=== PATIENT | female | born 1960 | race Caucasian/White ===

== ENCOUNTER 2018-07-08 15:07 | Day surgery (SDC) | payer BC ==
[2018-07-08] VITALS (7 sets, daily range): BP systolic 106–127; BP diastolic 61–73
[~2018-07-08] VITALS: Ht 157.5 cm; Wt 75.7 kg
[2018-07-08] MEDS ORDERED: LORazepam 0.5 MG tablet PO ONE (15:25)
[2018-07-08] MEDS ORDERED: diphenhydrAMINE 25mg capsule PO ONE (15:25)
[2018-07-08] MEDS ORDERED: ASPI-611 PO (15:43)
[2018-07-08] MEDS ORDERED: DIPH25TA62 PO (15:43)
[2018-07-08] MEDS ORDERED: SOTA80TA73 PO (15:43)
[2018-07-08] MEDS ORDERED: normal saline 1000ml 1,000 ML IV SCH (16:15)
[2018-07-08] MEDS ORDERED: pneumococcal 23-VAL P-sac vacc 25 mcg/0.5ml vial IMVAC ONE (17:40)
[2018-07-08] MEDS ORDERED: iohexol 350MG/ML 100ml bottle IV ONE (19:03)
[2018-07-08] MEDS ORDERED: fentaNYL/PF 50MCG/1 ML 2ML syringe ONE (19:03)
[2018-07-08] MEDS ORDERED: midazolam 2 mg/2 ml injection ONE ×2 (19:03→20:26)
[2018-07-08] MEDS ORDERED: LIDOcaine 1% (10mg/ml)w/preservative injection 20ml MDV ONE (19:03)
[2018-07-08] MEDS ORDERED: heparin 1,000unit/ml 10ml vial 10 ML ONE (19:03)
[2018-07-08] MEDS ORDERED: nitroGLYCERIN-Tridil 50MG/D5W 250 ML IV ONE (19:03)
[2018-07-08] MEDS ORDERED: verapamil 2.5 mg/ml inj IV ONE (19:03)
[2018-07-08] MEDS ORDERED: ondansetron/PF 4mg/2ml inj IV PRN (20:55)
[2018-07-08] MEDS ORDERED: OXAZEpam 15mg capsule PO PRN (20:55)
[2018-07-08] MEDS ORDERED: proCHLORperazine 10 MG/2 ml inj IV PRN (20:55)
--- NOTE | 2018-07-08 22:20 | NUR ---
Pt discharged, radial site inspected and no bleeding present. Pressure relieved slowly by 3 ml over 1 hr Q15. Patient was educated on site management and a bandaid was applied.
== END 2018-07-08 22:20 | disposition home or self-care (01) ==
LOC: SSTAY O 15:07 → MED 3N 21:03 → SSTAY O 22:20
PROVIDERS: ATTEND Internal Medicine Interventional Cardiology
DX: I25.10 Atherosclerotic heart disease of native coronary artery without angina pectoris (principal); I10 Essential (primary) hypertension; I48.0 Paroxysmal atrial fibrillation; F17.210 Nicotine dependence, cigarettes, uncomplicated; Z72.89 Other problems related to lifestyle; Z23 Encounter for immunization; Z85.44 Personal history of malignant neoplasm of other female genital organs; Z79.82 Long term (current) use of aspirin; Z98.890 Other specified postprocedural states; Z79.899 Other long term (current) drug therapy; Z82.49 Family history of ischemic heart disease and other diseases of the circulatory system
CPT/HCPCS: 90732; 93005; 93458; 99152; 99153; J1644; J2001; J2250; J3010; J7030; Q0163; Q9967; A4620; C1769; G0378; J3490

== ENCOUNTER 2018-07-08 22:34 | Emergency (ER) | payer BC ==
[~2018-07-08] VITALS: Ht 157.5 cm; Wt 74.0 kg
[~2018-07-08 22:34] MED LIST: ASPI-611 PO; DIPH25TA62 PO; SOTA80TA73 PO
--- NOTE | 2018-07-08 22:44 | NUR ---
Patient discharged at 22:10 tonight from heart catheterization with dr De Jesus. patient felt something warm and noted that she was bleeding from her right wrist: catheterization site. bandaid was still in place. site marked for current bruising with time and date delineated
--- NOTE | 2018-07-08 22:50 | NUR ---
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
[2018-07-08 23:13] VITALS: BP 145/73
== END 2018-07-08 23:19 | disposition home or self-care (01) ==
LOC: ER 22:34
DX: I97.610 Postprocedural hemorrhage of a circulatory system organ or structure following a cardiac catheterization (principal); Z79.82 Long term (current) use of aspirin
CPT/HCPCS: 99282; 99283

== ENCOUNTER 2020-08-12 11:38 | Inpatient (IN) | payer BC ==
[~2020-08-12] VITALS: Ht 157.5 cm; Wt 79.5 kg
[2020-08-12 12:44] LABS: BASOPHILS # (AUTO) 0.1 X10'3 (0-0.2); EOSINOPHILS # (AUTO) 0.1 X10'3 (0-0.9); EOSINOPHILS % (AUTO) 1.4 % (0-6); HEMATOCRIT 45.6 % (35.0-45.0); HEMOGLOBIN 15.5 g/dl (12.0-16.0); LYMPHOCYTES # (AUTO) 1.8 X10'3 (1.1-4.8); LYMPHOCYTES % (AUTO) 21.9 % (21-51); MEAN CORPUSCULAR HEMOGLOBIN 36.7 PG (27.0-31.0); MEAN CORPUSCULAR HGB CONC 33.9 g/dL (33.0-36.5); MEAN CORPUSCULAR VOLUME 108.3 FL (78-98); MEAN PLATELET VOLUME 8.5 FL (7.4-10.4); MONOCYTES # (AUTO) 0.7 X10'3 (0-0.9); MONOCYTES % (AUTO) 8.4 % (2-12); NEUTROPHILS # (AUTO) 5.5 X10'3 (1.8-7.7); NEUTROPHILS % (AUTO) 67.3 % (42-75); PLATELET COUNT 176 X10'3 (140-440); RED BLOOD COUNT 4.21 X10'6 (4.20-5.60); RED CELL DISTRIBUTION WIDTH 15.8 % (11.5-14.5); WHITE BLOOD COUNT 8.2 X10'3 (4.5-11.0)
[2020-08-12 13:01] LABS: ALANINE AMINOTRANSFERASE 45 U/L (12-78); ALBUMIN 3.1 G/DL (3.4-5.0); ALBUMIN/GLOBULIN RATIO 0.8 (1.1-1.5); ALKALINE PHOSPHATASE 71 IU/L (46-116); ANION GAP 8 (8-16); ASPARTATE AMINO TRANSFERASE 46 U/L (10-37); BILIRUBIN,TOTAL 0.8 MG/DL (0.1-1.0); BLOOD UREA NITROGEN 16 MG/DL (7-18); CALCIUM 8.8 MG/DL (8.5-10.1); CHLORIDE 105 MMOL/L (99-107); CREATININE 0.64 MG/DL (0.40-0.90); GLUCOSE 116 MG/DL (70-104); POTASSIUM 4.1 MMOL/L (3.5-5.1); SODIUM 141 MMOL/L (135-145); TOTAL PROTEIN 7.1 G/DL (6.4-8.2); eGFR > 90 ML/MIN
[2020-08-12] MEDS ORDERED: pantoprazole 40 MG vial IV ONE (15:10)
[2020-08-12] MEDS ORDERED: magnesium hydroxide 30ml (MOM) UD suspension PO PRN (15:15)
[2020-08-12] MEDS ORDERED: mag hydrox/Alum hydrox/simeth 30ml oral suspension PO PRN (15:15)
[2020-08-12] MEDS ORDERED: potassium Cl 20 mEq SR tablet PO PRN ×2 (15:15)
[2020-08-12] MEDS ORDERED: acetaminophen 325mg tablet PO PRN (15:15)
[2020-08-12] MEDS ORDERED: ondansetron/PF 4mg/2ml inj IV PRN (15:15)
[2020-08-12] MEDS ORDERED: magnesium 4gm in 100ml NS 100 ML IV PRN (15:15)
[2020-08-12] MEDS ORDERED: potassium Cl 40MEQ/1/2NS 520ml 520 ML IV PRN ×2 (15:15)
[2020-08-12] MEDS ORDERED: magnesium Cl slow-release 64mg tablet PO PRN (15:15)
[2020-08-12] MEDS ORDERED: magnesium 2GM in 50ml NS 50 ML IV PRN (15:15)
[2020-08-12] MEDS: pantoprazole 40MG/NS 100ML BAG 100 ML IV SCH ×2 (15:23→21:15)
[2020-08-12] MEDS: normal saline 1000ml 1,000 ML IV SCH (15:46)
--- NOTE | 2020-08-12 15:46 | NUR ---
PHARMACIST AT BEDSIDE COMPLETING MED REC
[2020-08-12] MEDS ORDERED: DABI150C PO (15:47)
[2020-08-12] MEDS ORDERED: ATOR40TA72 PO (15:47)
[2020-08-12] MEDS ORDERED: pantoprazole 40MG/NS 100ML BAG 100 ML IV SCH (16:00)
--- NOTE | 2020-08-12 17:00 | NUR ---
HOSPITALIST YAMILA AT BEDSIDE
[2020-08-12] MEDS ORDERED: LORazepam 1 MG tablet PO PRN (17:10)
[2020-08-12] MEDS ORDERED: LORazepam 2 mg/ml vial IV PRN (17:10)
--- NOTE | 2020-08-12 17:25 | NUR ---
PT GIVEN FOOD SHE WILL BE NPO AT MIDNIGHT FOR ENDOSCOPY IN THE AM. WILL CONTINUE TO MONITOR
[2020-08-12 18:56] LABS: HEMATOCRIT 44.2 % (35.0-45.0); HEMOGLOBIN 14.7 g/dl (12.0-16.0); MEAN CORPUSCULAR HEMOGLOBIN 36.3 PG (27.0-31.0); MEAN CORPUSCULAR HGB CONC 33.3 g/dL (33.0-36.5); MEAN CORPUSCULAR VOLUME 108.8 FL (78-98); PLATELET COUNT 163 X10'3 (140-440); RED BLOOD COUNT 4.06 X10'6 (4.20-5.60); RED CELL DISTRIBUTION WIDTH 15.6 % (11.5-14.5)
[2020-08-12] MEDS: K and/or MAG REPLACEMENT MC SCH (20:00)
[2020-08-12] MEDS: sotalol 80mg tablet PO SCH (21:14)
[2020-08-12 22:00] VITALS: BP 131/77
[2020-08-13] VITALS (11 sets, daily range): BP systolic 92–144; BP diastolic 55–96
[2020-08-13] MEDS: pantoprazole 40MG/NS 100ML BAG 100 ML IV SCH ×5 (01:53→21:43)
[2020-08-13 01:55] LABS: HEMATOCRIT 37.3 % (35.0-45.0); HEMOGLOBIN 12.7 g/dl (12.0-16.0); MEAN CORPUSCULAR HEMOGLOBIN 36.3 PG (27.0-31.0); MEAN CORPUSCULAR HGB CONC 34.1 g/dL (33.0-36.5); MEAN CORPUSCULAR VOLUME 106.5 FL (78-98); MEAN PLATELET VOLUME 8.7 FL (7.4-10.4); PLATELET COUNT 135 X10'3 (140-440); RED CELL DISTRIBUTION WIDTH 15.9 % (11.5-14.5); WHITE BLOOD COUNT 5.9 X10'3 (4.5-11.0)
[2020-08-13 02:08] LABS: ALANINE AMINOTRANSFERASE 28 U/L (12-78); ALBUMIN 2.4 G/DL (3.4-5.0); ALBUMIN/GLOBULIN RATIO 0.8 (1.1-1.5); ALKALINE PHOSPHATASE 57 IU/L (46-116); AMYLASE 28 U/L (25-115); ANION GAP 8 (8-16); ASPARTATE AMINO TRANSFERASE 27 U/L (10-37); BILIRUBIN,TOTAL 0.7 MG/DL (0.1-1.0); BLOOD UREA NITROGEN 13 MG/DL (7-18); BUN/CREATININE RATIO 21.7 (6.6-38.0); CALCIUM 8.2 MG/DL (8.5-10.1); CHLORIDE 109 MMOL/L (99-107); LIPASE 90 U/L (73-393); MAGNESIUM 1.7 MG/DL (1.5-2.4); POTASSIUM 3.5 MMOL/L (3.5-5.1); SODIUM 144 MMOL/L (135-145); TOTAL CARBON DIOXIDE 27.5 MMOL/L (24-32); TOTAL PROTEIN 5.6 G/DL (6.4-8.2); eGFR > 90 ML/MIN
[2020-08-13 02:17] LABS: GLUCOSE 86 MG/DL (70-104)
--- NOTE | 2020-08-13 06:17 | NUR ---
Problems reprioritized. Patient report given, questions answered & plan of care reviewed with MELANIE Humphrey
[2020-08-13] MEDS: K and/or MAG REPLACEMENT MC SCH ×2 (08:00→20:00)
[2020-08-13 08:06] LABS: OCCULT BLOOD STOOL POSITIVE (Neg)
[2020-08-13] MEDS: thiamine 100mg tablet PO SCH (09:20)
[2020-08-13] MEDS: atorvastatin 20mg tablet PO SCH (09:21)
[2020-08-13] MEDS: multivitamins, therapeutics tablet PO SCH (09:21)
[2020-08-13] MEDS: folic acid 1mg tablet PO SCH (09:21)
[2020-08-13] MEDS: sotalol 80mg tablet PO SCH ×2 (09:21→21:30)
[2020-08-13 10:40] LABS: HEMOGLOBIN 12.7 g/dl (12.0-16.0); MEAN CORPUSCULAR HEMOGLOBIN 36.4 PG (27.0-31.0); MEAN CORPUSCULAR HGB CONC 33.4 g/dL (33.0-36.5); MEAN PLATELET VOLUME 8.4 FL (7.4-10.4); PLATELET COUNT 142 X10'3 (140-440); RED BLOOD COUNT 3.49 X10'6 (4.20-5.60); RED CELL DISTRIBUTION WIDTH 15.9 % (11.5-14.5); WHITE BLOOD COUNT 5.1 X10'3 (4.5-11.0)
[2020-08-13] MEDS ORDERED: LIDOcaine Viscous 15ml cup ONE (13:57)
[2020-08-13] MEDS ORDERED: fentaNYL/PF 50MCG/1 ML 2ML syringe ONE (13:57)
[2020-08-13] MEDS ORDERED: MIDAZolam 5mg/5ml vial ONE (13:57)
[2020-08-13] MEDS ORDERED: ondansetron 4mg rapidly disintigrating tab PO PRN (16:20)
[2020-08-13] MEDS: normal saline 1000ml 1,000 ML IV SCH (16:35)
[2020-08-13 18:15] LABS: HEMATOCRIT 37.5 % (35.0-45.0); HEMOGLOBIN 12.5 g/dl (12.0-16.0); MEAN CORPUSCULAR HEMOGLOBIN 36.1 PG (27.0-31.0); MEAN CORPUSCULAR HGB CONC 33.3 g/dL (33.0-36.5); MEAN CORPUSCULAR VOLUME 108.5 FL (78-98); MEAN PLATELET VOLUME 8.2 FL (7.4-10.4); PLATELET COUNT 132 X10'3 (140-440); RED BLOOD COUNT 3.46 X10'6 (4.20-5.60); RED CELL DISTRIBUTION WIDTH 15.7 % (11.5-14.5); WHITE BLOOD COUNT 4.6 X10'3 (4.5-11.0)
[2020-08-14] MEDS: pantoprazole 40MG/NS 100ML BAG 100 ML IV SCH (01:00)
[2020-08-14 02:00] VITALS: BP 101/56
[2020-08-14 06:00] VITALS: BP 110/46
--- NOTE | 2020-08-14 06:17 | NUR ---
Problems reprioritized. Patient report given, questions answered & plan of care reviewed with Kam NAVARRO.
[2020-08-14 07:18] LABS: HEMATOCRIT 35.9 % (35.0-45.0); HEMOGLOBIN 12.1 g/dl (12.0-16.0); MEAN CORPUSCULAR HEMOGLOBIN 36.7 PG (27.0-31.0); MEAN CORPUSCULAR HGB CONC 33.7 g/dL (33.0-36.5); MEAN CORPUSCULAR VOLUME 108.9 FL (78-98); MEAN PLATELET VOLUME 8.8 FL (7.4-10.4); PLATELET COUNT 121 X10'3 (140-440); RED CELL DISTRIBUTION WIDTH 15.7 % (11.5-14.5); WHITE BLOOD COUNT 4.9 X10'3 (4.5-11.0)
[2020-08-14 07:44] LABS: ALANINE AMINOTRANSFERASE 29 U/L (12-78); ALBUMIN 2.3 G/DL (3.4-5.0); ALBUMIN/GLOBULIN RATIO 0.7 (1.1-1.5); ALKALINE PHOSPHATASE 46 IU/L (46-116); AMYLASE 35 U/L (25-115); ANION GAP 7 (8-16); ASPARTATE AMINO TRANSFERASE 29 U/L (10-37); BILIRUBIN,TOTAL 0.7 MG/DL (0.1-1.0); BLOOD UREA NITROGEN 10 MG/DL (7-18); BUN/CREATININE RATIO 20.8 (6.6-38.0); CALCIUM 8.1 MG/DL (8.5-10.1); CHLORIDE 111 MMOL/L (99-107); CREATININE 0.48 MG/DL (0.40-0.90); LIPASE 127 U/L (73-393); MAGNESIUM 1.7 MG/DL (1.5-2.4); PHOSPHORUS 3.2 MG/DL (2.3-4.5); POTASSIUM 3.5 MMOL/L (3.5-5.1); SODIUM 144 MMOL/L (135-145); TOTAL CARBON DIOXIDE 25.8 MMOL/L (24-32); TOTAL PROTEIN 5.5 G/DL (6.4-8.2); eGFR > 90 ML/MIN
[2020-08-14 07:45] LABS: GLUCOSE 83 MG/DL (70-104)
[2020-08-14] MEDS ORDERED: dabigatran 150mg capsule PO SCH (08:00)
[2020-08-14] MEDS: thiamine 100mg tablet PO SCH (08:54)
[2020-08-14] MEDS: folic acid 1mg tablet PO SCH (08:54)
[2020-08-14] MEDS: multivitamins, therapeutics tablet PO SCH (08:54)
[2020-08-14] MEDS: atorvastatin 20mg tablet PO SCH (08:55)
[2020-08-14] MEDS: sotalol 80mg tablet PO SCH (08:55)
[2020-08-14] MEDS ORDERED: PANT-47 PO (11:01)
[2020-08-14 11:25] VITALS: BP 129/71
== END 2020-08-14 11:45 | disposition home or self-care (01) | DRG 378 ==
LOC: ER 11:39 → ED HOLD 15:15 → PCU 3S 19:00
PROVIDERS: ADMIT Family Medicine; ATTEND Family Medicine
PROC: 0DB68ZX Excision of Stomach, Via Natural or Artificial Opening Endoscopic, Diagnostic (ICD-10-PCS; principal; 2020-08-13)
DX: K25.0 Acute gastric ulcer with hemorrhage (principal); I48.20 Chronic atrial fibrillation, unspecified; E78.5 Hyperlipidemia, unspecified; F17.210 Nicotine dependence, cigarettes, uncomplicated; G47.33 Obstructive sleep apnea (adult) (pediatric); K44.9 Diaphragmatic hernia without obstruction or gangrene; Z85.44 Personal history of malignant neoplasm of other female genital organs
CPT/HCPCS: 36415; 43239; 80053; 82150; 82272; 82948; 83690; 83735; 84100; 85025; 85027; 85610; 87081; 97116; 97161; 97530; 99152; 99285; A4620; C9113; G0378; J2250; J3010; J7030; J7040

== ENCOUNTER 2020-10-19 07:49 | Inpatient (IN) | payer BC ==
[2020-10-12 10:55] LABS: BASOPHILS # (AUTO) 0.1 X10'3 (0-0.2); BASOPHILS % (AUTO) 0.9 % (0-1); EOSINOPHILS # (AUTO) 0.2 X10'3 (0-0.9); EOSINOPHILS % (AUTO) 2.5 % (0-6); LYMPHOCYTES # (AUTO) 1.2 X10'3 (1.1-4.8); LYMPHOCYTES % (AUTO) 20.1 % (21-51); MEAN PLATELET VOLUME 8.1 FL (7.4-10.4); MONOCYTES # (AUTO) 0.7 X10'3 (0-0.9); MONOCYTES % (AUTO) 11.4 % (2-12); NEUTROPHILS % (AUTO) 65.1 % (42-75); PRE OP HEMATOCRIT 41.6 % (35.0-45.0); PRE OP HEMOGLOBIN 13.7 g/dL (12.0-16.0); PRE OP PLATELET COUNT 192 X10'3 (140-440); RED BLOOD COUNT 4.16 X10'6 (4.20-5.60); RED CELL DISTRIBUTION WIDTH 15.9 % (11.5-14.5)
[2020-10-12 11:08] LABS: PRE OP INR 1.3 INR
[2020-10-12 11:11] LABS: ALBUMIN 3.3 G/DL (3.4-5.0); ALBUMIN/GLOBULIN RATIO 0.8 (1.1-1.5); ALKALINE PHOSPHATASE 59 IU/L (46-116); BLOOD UREA NITROGEN 4 MG/DL (7-18); BUN/CREATININE RATIO 6.8 (6.6-38.0); CALCIUM 9.1 MG/DL (8.5-10.1); CHLORIDE 105 MMOL/L (99-107); CREATININE 0.59 MG/DL (0.40-0.90); PRE OP ALT 65 U/L (30-65); PRE OP ANION GAP 10 (8-16); PRE OP AST 76 U/L (10-37); PRE OP BILIRUB, TOTAL 0.5 MG/DL (0.0-1.0); PRE OP GLUCOSE 89 MG/DL (70-104); PRE OP POTASSIUM 3.8 MMOL/L (3.4-5.1); PRE OP SODIUM 143 MMOL/L (135-145); TOTAL CARBON DIOXIDE 27.8 MMOL/L (24-32); TOTAL PROTEIN 7.2 G/DL (6.4-8.2); eGFR > 90 ML/MIN
[~2020-10-19] VITALS: Ht 157.5 cm; Wt 78.0 kg
[2020-10-19] VITALS (25 sets, daily range): BP systolic 100–146; BP diastolic 48–82
[~2020-10-19 07:49] MED LIST changes: -ASPI-611 PO; +ATOR40TA72 PO; +DABI150C PO; -DIPH25TA62 PO; +DOCUMENT DATE & TIME OF BETA-BLOCKER PO ONE; +LORA-641 PO; +PANT-47 PO; +cefazolin/dext.iso 2gm/100ml 100 ML IV ONE; +famotidine 20mg tablet PO ONE; +ringers solution, lacted 1,000 ML IV SCH
[2020-10-19] MEDS ORDERED: diatrozoate meglu/diatrozoate sod (37% iodine) 120ML oral solution ONE (08:00)
[2020-10-19] MEDS ORDERED: BUPIVAcaine/PF 2.5 mg/ml (0.25%) 30ml vial ONE (08:56)
[2020-10-19] MEDS ORDERED: LIDOcaine 1% 30ml preserv. free vial ONE (08:56)
[2020-10-19] MEDS ORDERED: midazolam 1 mg/ML 2ml injection ONE (09:05)
[2020-10-19] MEDS ORDERED: fentaNYL /PF 50mcg/ml 5ml ampule ONE (09:06)
[2020-10-19] MEDS ORDERED: LIDOcaine 2% 5ml jelly ONE (09:07)
[2020-10-19 09:11] LABS: PRE OP PARTIAL THROMB. TIME 26 SECONDS (22-32)
[2020-10-19] MEDS ORDERED: phenylephrine 10mg/ml inj. ONE (09:18)
[2020-10-19] MEDS ORDERED: sevoflurane 250ml liquid IH ONE (09:18)
[2020-10-19] MEDS ORDERED: propofol inj 20 ML IV ONE (09:52)
[2020-10-19] MEDS ORDERED: 0.9 % SODIUM CHLORIDE 10 ML VIAL ONE (09:52)
[2020-10-19] MEDS ORDERED: dexamethasone sod phosphate 4mg/ml inj. ONE (09:52)
[2020-10-19] MEDS ORDERED: LIDOcaine 2% (20mg/ml) 5ml vial ONE (09:52)
[2020-10-19] MEDS ORDERED: ePHEDrine 50MG/ML INJ. ONE (09:52)
[2020-10-19] MEDS ORDERED: rocuronium 10mg/ml inj IV ONE ×2 (09:52→09:59)
[2020-10-19] MEDS ORDERED: ondansetron/PF 4mg/2ml inj ONE (09:52)
[2020-10-19] MEDS ORDERED: ringers solution, lacted 1,000 ML IV SCH (10:00)
[2020-10-19] MEDS ORDERED: morphine 2 MG/ML inj. syringe IV PRN (10:00)
[2020-10-19] MEDS ORDERED: morphine 4 MG/ML inj SYRINge IV PRN (10:00)
[2020-10-19] MEDS ORDERED: proCHLORperazine 10 MG/2 ml inj IV PRN (10:00)
[2020-10-19] MEDS ORDERED: labetalol 20mg/4ml (5mg/ml) syringe IV PRN (10:00)
[2020-10-19] MEDS ORDERED: acetaminophen 1,000mg/100ml IV 100 ML IV PRN (10:00)
[2020-10-19] MEDS ORDERED: ondansetron/PF 4mg/2ml inj IV PRN ×2 (10:00→12:55)
[2020-10-19] MEDS ORDERED: meperidine/PF 25mg/ml syringe IV PRN ×3 (10:00)
[2020-10-19] MEDS ORDERED: hydrALAZINE 20mg/ml inj. IV PRN (10:00)
[2020-10-19] MEDS ORDERED: sugammadex 200mg/2ml injection IV ONE (10:09)
--- NOTE | 2020-10-19 12:35 | NUR ---
Received from OR via BED, accompanied by Anesthesiologist DR BROWN and report given by Anesthesiologist. PT DROWSY, DENIES PAIN, ABDOMEN W/6 SMALL LAP SITES W/DERMABOND CDI. Addendum: 10/19/20 at 1300 by Estrella Darby RN Amended: Links added.
[2020-10-19] MEDS ORDERED: HYDROmorphone/NS 1 mg/ml CADD 50 ML IV SCH (12:55)
[2020-10-19] MEDS ORDERED: naloxone 0.4 mg/ml inj IV PRN (12:55)
[2020-10-19] MEDS ORDERED: CADD PCA waste documentation MC PRN (12:55)
[2020-10-19] MEDS ORDERED: loratadine 10mg tablet PO PRN (13:15)
[2020-10-19] MEDS: HYDROmorphone/NS 1 mg/ml CADD 50 ML IV SCH ×5 (14:24→23:00)
--- NOTE | 2020-10-19 14:41 | NUR ---
Received report from MELANIE De La Rosa, from OR. awaiting pt arrival.
--- NOTE | 2020-10-19 15:05 | NUR ---
Report called to receiving nurse. Transferred via BED, GLASSES, FULL UPPER/LOWER DENTURES, CELL PHONE, CLOTHING SENT W/PT TO ROOM 345B. SIDE RAILS UP, BLL, CALL LIGHT GIVEN, PT ORIENTED TO SAFETY, CALL LIGHT. RECEIVING RN AWARE OF PTS ARRIVAL. Special Issues communicated to receiving nurse. YES. Addendum: 10/19/20 at 1529 by Etsrella Darby RN Amended: Links added.
[2020-10-19] MEDS: Potassium Cl inj 20 MEQ in ringers solution, lacted 1,000 ML IV SCH ×2 (16:11→21:00)
--- NOTE | 2020-10-19 18:11 | NUR ---
Report given to Laura Holcomb RN. All questions answered. Pt comfortable in bed, looking at phone. No current concerns.
--- NOTE | 2020-10-19 18:38 | NUR ---
Patient in room [facility]. I have received report from Evon NAVARRO and had the opportunity to ask questions and assume patient care.
[2020-10-19] MEDS: sotalol 80mg tablet PO SCH (19:15)
[2020-10-19] MEDS: pantoprazole 40mg Tablet.DR PO SCH (19:16)
[2020-10-19] MEDS: heparin, porcine 5000 units/ml vial SQ SCH (19:17)
[2020-10-20] VITALS: BP 113/61
[2020-10-20] MEDS: Potassium Cl inj 20 MEQ in ringers solution, lacted 1,000 ML IV SCH ×2 (00:04→09:22)
[2020-10-20] MEDS: HYDROmorphone/NS 1 mg/ml CADD 50 ML IV SCH ×6 (01:00→11:00)
[2020-10-20 04:00] VITALS: BP 129/63
[2020-10-20 06:02] LABS: BASOPHILS % (AUTO) 0.1 % (0-1); EOSINOPHILS % (AUTO) 0 % (0-6); HEMATOCRIT 36.3 % (35.0-45.0); LYMPHOCYTES % (AUTO) 11.3 % (21-51); MEAN CORPUSCULAR HEMOGLOBIN 33.2 PG (27.0-31.0); MEAN CORPUSCULAR VOLUME 100.7 FL (78-98); MEAN PLATELET VOLUME 8.8 FL (7.4-10.4); NEUTROPHILS # (AUTO) 6.8 X10'3 (1.8-7.7); NEUTROPHILS % (AUTO) 77.6 % (42-75); PLATELET COUNT 143 X10'3 (140-440); RED CELL DISTRIBUTION WIDTH 16.2 % (11.5-14.5); WHITE BLOOD COUNT 8.7 X10'3 (4.5-11.0)
[2020-10-20 06:03] LABS: ALBUMIN 2.6 G/DL (3.4-5.0); ANION GAP 7 (8-16); BLOOD UREA NITROGEN 7 MG/DL (7-18); BUN/CREATININE RATIO 9.6 (6.6-38.0); CALCIUM 7.7 MG/DL (8.5-10.1); CHLORIDE 108 MMOL/L (99-107); CREATININE 0.73 MG/DL (0.40-0.90); GLUCOSE 118 MG/DL (70-104); POTASSIUM 4.1 MMOL/L (3.5-5.1); SODIUM 144 MMOL/L (135-145); eGFR 81 ML/MIN
--- NOTE | 2020-10-20 06:31 | NUR ---
Problems reprioritized. Patient report given, questions answered & plan of care reviewed with Krystyna NAVARRO.
--- NOTE | 2020-10-20 06:45 | NUR ---
Patient in room [facility] 345B. I have received report from MELANIE ALBERTO and had the opportunity to ask questions and assume patient care.
--- NOTE | 2020-10-20 06:51 | NUR ---
Patient in room [facility] 345-B. I have received report from MELANIE Sanchez and had the opportunity to ask questions and assume patient care.
[2020-10-20 07:00] VITALS: BP 96/50
[2020-10-20] MEDS ORDERED: atorvastatin 20mg tablet PO SCH (08:00)
[2020-10-20] MEDS: sotalol 80mg tablet PO SCH (09:18)
[2020-10-20] MEDS: pantoprazole 40mg Tablet.DR PO SCH (09:19)
[2020-10-20] MEDS: heparin, porcine 5000 units/ml vial SQ SCH (09:32)
--- NOTE | 2020-10-20 10:36 | NUR ---
Student Medication Administration: For this medication-pass time frame, all medication were reviewed, dispensed, administered and documented per hospital policy by Abbey HENDERSON.
[2020-10-20 11:00] VITALS: BP 90/51
--- NOTE | 2020-10-20 12:15 | NUR ---
Nutrition consult re: "post Sajan diet". Pt seen at bedside provided with written and verbal post Sajan fundoplication nutrition therapy education which includes diet progression and a list of fiber content in food. Patient reports reading materials provided post-op and able to discuss education materials. All of patient's questions were answered at this time. RD contact information provided. Pt reports a low appetite post-op and denies any pain with PO intake. Pt denies food allergies or feeling constipated though LBM the morning of 10/[address] discussed constipation nutrition therapy and encouraged pt to inform RN if feeling constipated. Will continue to follow. Addendum: 10/20/20 at [address] Amended: Links added.
[2020-10-20] MEDS ORDERED: HYDR-3965 PO (12:22)
[2020-10-20] MEDS ORDERED: HYDROcodone/acetaminophen 10/325mg tab PO PRN (13:05)
[2020-10-20] MEDS ORDERED: HYDROcodone/acetaminophen 5mg/325mg tablet PO PRN (13:30)
--- NOTE | 2020-10-20 15:50 | NUR ---
PATIENT STABLE AND APPROPRIATE FOR DISCHARGE, IV TAKEN OUT, EDUCATION GIVEN, NEW MEDS CALLED INTO PREFERRED PHARMACY, ALL BELONGINGS SENT WITH PATIENT, PATIENT TAKEN TO LOBBY IN WHEELCHAIR TO AN AWAITING CAR [facility] Addendum: 10/20/20 at 2019 by Krystyna Duvall RN WHERE WILL TAKE PATIENT HOME
== END 2020-10-20 15:47 | disposition home or self-care (01) | DRG 327 ==
LOC: UNDOADMIN 07:49 → PAS IN 07:49 → SUR 3N 14:56
PROVIDERS: ADMIT Surgery; ATTEND Surgery
PROC: 0DV44ZZ Restriction of Esophagogastric Junction, Percutaneous Endoscopic Approach (ICD-10-PCS; 2020-10-19)
PROC: 8E0W4CZ Robotic Assisted Procedure of Trunk Region, Percutaneous Endoscopic Approach (ICD-10-PCS; 2020-10-19)
PROC: 0BQT4ZZ Repair Diaphragm, Percutaneous Endoscopic Approach (ICD-10-PCS; principal; 2020-10-19 09:18)
DX: K44.9 Diaphragmatic hernia without obstruction or gangrene (principal); K92.2 Gastrointestinal hemorrhage, unspecified; Z20.822 Contact with and (suspected) exposure to COVID-19; Z88.2 Allergy status to sulfonamides; Z91.040 Latex allergy status; Z88.8 Allergy status to other drugs, medicaments and biological substances
CPT/HCPCS: Z7506; Z7508; 36415; 71045; 71046; 74220; 80048; 80053; 82948; 85025; 85610; 85730; 87081; A4618; C9399; G0378; J0131; J1100; J1170; J1644; J2001; J2175; J2250; J2370; J2405; J2704; J3010; J3480; J3490; J7120; Q9963; U0003